=== PATIENT | male | born 1950 | race Two or more races ===

== ENCOUNTER 2020-04-06 09:38 | Outpatient (CLI) | payer OTHER | END 2020-04-06 09:42 | disposition home or self-care (01) | LOC: SONOGRAMA 09:38 | PROVIDERS: ATTEND Pathology Anatomic Pathology & Clinical Pathology | DX: E04.2 Nontoxic multinodular goiter (principal) ==

== ENCOUNTER 2021-06-08 09:25 | Outpatient (CLI) | payer OTHER | END 2021-06-08 09:29 | disposition home or self-care (01) | LOC: SONOGRAMA 09:25 | PROVIDERS: ATTEND Surgery Surgical Oncology | DX: E04.1 Nontoxic single thyroid nodule (principal); E04.8 Other specified nontoxic goiter ==

== ENCOUNTER 2021-12-05 09:29 | Outpatient (CLI) | payer OTHER | END 2021-12-05 09:33 | disposition home or self-care (01) | LOC: SONOGRAMA 09:29 | PROVIDERS: ATTEND Surgery Surgical Oncology | DX: E03.9 Hypothyroidism, unspecified (principal) ==

== ENCOUNTER 2022-12-05 09:08 | Outpatient (CLI) | payer OTHER | END 2022-12-05 09:10 | disposition home or self-care (01) | LOC: SONOGRAMA 09:08 | PROVIDERS: ATTEND Surgery Surgical Oncology | DX: E04.9 Nontoxic goiter, unspecified (principal) ==